=== PATIENT | female | born 1960 | race Caucasian/White ===

== ENCOUNTER → 2019-10-20 11:03 | Outpatient (BNVA) | payer MEDICAID, SELFPAY | PROVIDERS: Family Provider Family Medicine; PCP Family Medicine; Referring Provider Licensed Practical Nurse; Visit Provider Psychiatry & Neurology Neurology | DX: M54.2 Cervicalgia (principal); M79.602 Pain in left arm; M79.601 Pain in right arm | CPT/HCPCS: 95886; 95910 ==

== ENCOUNTER 2020-12-29 13:18 | Inpatient (IN) | payer MEDICAID, SELFPAY ==
[2020-12-29] VITALS (15 sets, daily range): BP systolic 73–103; BP diastolic 50–65; PULSE 74–100; RESP 12–19; TEMP 36.7; O2SAT 93–97; BMI 29.9
--- NOTE | 2020-12-29 14:42 | ECG_ITS ---
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 Measurements Intervals Steen Rate: 88 P: 59 IA: 135 QRS: 58 QRSD: 92 T: 96 QT: 353 QTc: 429 Interpretive Statements SINUS RHYTHM NONSPECIFIC ST & T-WAVE ABNORMALITY No previous ECG available for comparison Electronically Signed On 12-30-2020 7:18:14 CDT by Sarita Edwards M.D. [id number]
--- NOTE | 2020-12-29 14:42 | XR_ITS ---
WS: [id number] Exam: XR chest 1V portable [id number] Date/Time of Exam: 12/29/2020 2:48 PM Reason For Exam: cp No previous exams. The lungs are hyperinflated. No infiltrates or pleural effusions. Unremarkable cardiomediastinal stru ctures and bony elements. XR/XR chest 1V portable [id number] IMPRESSION: 1. No acute cardiopulmonary finding. 2. Pulmonary hyperinflation.
[2020-12-29 15:21] LABS: Basophils % 0.2 %; Eosinophils % 0.2 %; Hematocrit 42.3 % (37.0-47.0); Hemoglobin 13.9 g/dL (11.5-15.3); Lymphocytes # 4.3 10^3/uL (0.8-4.8); Lymphocytes % 25.7 %; Mean Corpuscular HGB Conc 32.9 g/dL (30.0-36.0); Mean Corpuscular Hemoglobin 30.8 pg (28.0-34.0); Mean Corpuscular Volume 93.8 fL (81-99); Mean Platelet Volume 10.5 fL (7.4-10.4); Monocytes # 1.3 10^3/uL (0.2-0.9); Monocytes % 7.7 %; Neutrophils # 10.87 10^3/uL (1.8-7.7); Neutrophils % 65.1 %; Nucleated Red Blood Cells % 0 %; Platelet Count 299 10^3/cmm (130-400); Red Blood Count 4.51 10^6/uL (4.1-5.3); White Blood Count 16.7 10^3/uL (4.0-10.0)
--- NOTE | 2020-12-29 15:42 | PC.PHAR ---
pt states she takes care of her own medications-pt brought in med list from [facility] dated 12/25/20 med list had gabapentin 300mg tid -pt states she is not taking that medication [facility] last filled february 2020-list also has clartin 10mg daily and golytel powder pt states she is not taking either of those medications-pt states she saw the yesterday and the dr galeanod prednisone 20mg take 2 tabs daily ext med history shows filled on 12/26/20 5d/s-pt states she has 2 or 3 caps left of the doxycycline hyclate 100mg bid filled on 12/26/20 7d/s
[2020-12-29 15:47] LABS: Troponin(5th) Baseline 37 ng/L (0-10)
[2020-12-29 15:51] LABS: Alanine Aminotransferase 38 U/L (0-33); Alkaline Phosphatase 60 IU/L (35-105); Anion Gap 16.6 (5-19); Aspartate Amino Transferase 12 U/L (0-32); Blood Urea Nitrogen 32 mg/dL (8-23); Calcium 9.2 mg/dL (8.5-10.5); Carbon Dioxide 26 mmol/L (22-29); Chloride 97 mmol/L (98-107); Glomerular Filtration Rate 38.4 mL/min (90-130); Glucose 114 mg/dL (65-115); NT Pro B Type Natriuretic Pept 136 pg/mL (0-125); Osmolality Calculated 290 mOsm/kg (285-295); Potassium 3.6 mmol/L (3.5-5.1); Sodium 136 mmol/L (136-145); Total Bilirubin 0.5 mg/dL (0.15-1.2)
--- NOTE | 2020-12-29 16:27 | W.ED.SOB ---
HPI - SOB/Dyspnea General: Chief Complaint: Shortness of Breath/Dyspnea Stated Complaint: SOB, DIZZY, HARD TO WALK Time Seen by Provider: 12/29/20 14:25 History of Present Illness: HPI Narrative: This is a 60-year-old female who presents with shortness of breath for over a week and also intermittent chest pain for a couple of weeks. Patient has a chronic cough she does have some COPD quit smoking 3 weeks ago she was seen and admitted at [facility] where they gave her steroids and antibiotics and sent her home and on Saturday when she arrived back home she had shortness of breath upon arrival to her house and chest discomfort. She has exertional chest pain that is a pressure or tightness that her arms at times feel kind of tingly and funny. She has had intermittent chest pain for couple of weeks she denies any orthopnea she does have some difficulty sleeping as she feels her heart is racing. She has chest pain currently that is a 2 out of 10. She denies any fevers. She said she had a Covid test at [facility] and also does have a Isaiah & Isaiah vaccination on the . She is a smoker she says she quit 3 weeks ago when all of this started she has hypertension diabetes hyperlipidemia family history of mother with a pacemaker and no known coronary artery disease in the family. Patient has never had chest pain work-up and denies ever having a stress test. She takes a blood pressure pill of lisinopril/HCTZ that she took earlier today. She uses her inhaler as needed. She denies wheezing. says patient just has not gotten any better since her admission she is had intermittent chest pain she continues to be short of breath and that it is not like her to complain and for her to want to come to the hospital that she must feel bad patient spoke to her PCP who instructed her to come to [facility] as opposed to [facility] Review of Systems General: Reports: 10 or more systems reviewed and unremarkable except in HPI and below Narrative: General: +++ fatigue, fever or chills HEENT: denies ear pain, denies nasal congestion, denies vision changes, denies sore throat Neck: denies masses or pain Resp: chronic cough non productive, dyspnea worse with exertion, palpitations when tries to sleep Cardio: chest pressure 2/10 denies edema GI: denies abdominal pain, denies N/V/D, denies black/tarry or bloody stools : denies hematuria, denies dysuria Neuro: denies headache, denies dizziness, denies motor or sensory changes Musculoskeletal: denies pain, denies swelling Skin: denies rashes Psych: denies SI or HI, insomnia Endocrine: denies thyroid symptoms, denies lymphadenopathy all over ROS reviewed and patient denies Physical Exam Narrative: EXAM NARRATIVE: General: a/o/3, no distress Head: atraumatic HEENT: normal eyes, normal conjunctiva, normal hearing, normal external nose, normal mouth, mucous membranes moist Neck: FROM, trachea midline Chest: normal expansion, no gross deformities Resp: normal speech, no retractions, no accessory muscle use, CTA bilaterally Cardio: regular rate and rhythm and no murmur, no peripheral edema, normal peripheral pulses GI: soft, flat non tender, no guarding normal BS : deferred Musculoskeletal: FROM, no pain or gross deformities Neuro: a/o appropriate for age, no gross motor or sensory deficitys, CN II-XII grossly intact, normal coordination, normal speech Skin: no rashes Psych: cooperative, normal mood and effect Course Vital Signs: Vital signs: Vital Signs Temperature 98.0 F 12/29/20 14:15 Pulse Rate 80 12/29/20 17:38 Respiratory Rate 18 12/29/20 17:38 Blood Pressure 89/57 12/29/20 17:38 Pulse Oximetry 95 12/29/20 17:38 MDM - SOB/Dyspnea MDM Narrative: Medical decision making narrative: Patient has had several readings of soft blood pressure in the ER she did go ahead and take her morning lisinopril hydrochlorothiazide I do not have anything to compare it to did check it several times in the ER and I did give to 86/52 she is asymptomatic but then her next reading was up in the 90s we will go ahead start some fluids. The concern is that patient does have some chest discomfort here in the ER she states it is a 2 out of a 10 she was given aspirin I cannot give her nitro she is not diaphoretic and she is nontoxic-appearing I will give her 2 mg of morphine for her pain. There is no acute ST changes I would consider a CTA of her chest concern she is had a recent Isaiah [employer] Isaiah Covid vaccination and continues to be short of breath however her GFR is 38 and she is not tachycardic and does not appear to be in distress so I will hold on IV contrast at this time due to his renal function. She has multiple risk factors including smoking hypertension high cholesterol diabetes no previous cardiac work-up her troponin is 37 which we will need to get serial troponins to determine if this is elevating or possibly on its way down. I think it would be reasonable to start heparin on her as her creatinine is a little bit elevated and 1 a hold on any Lovenox patient possibly has a non-STEMI and/or unstable angina. Spoke to the hospitalist at 430 we will admit the patient to [facility] with heparin and heparin drip as long as her blood pressure improves a little bit with fluids. She does have some renal insufficiency. Differential Diagnosis: Shortness of Breath Differential Diagnosis: Likely acute exacerbation of chronic obstructive airways disease, congestive heart failure and pulmonary embolism Medical Records: Attestation: I reviewed the patient's medical records. Lab Data: Attestation: I reviewed the patient's lab results. Labs: Lab Results 12/29/20 12/29/20 12/29/20 Range/Units 15:10 15:10 15:10 WBC 16.7 H (4.0-10.0) 10^3/ uL RBC 4.51 (4.1-5.3) 10^6/u L Hgb 13.9 (11.5-15.3) g/dL Hct 42.3 (37.0-47.0) % MCV 93.8 (81-99) fL MCH 30.8 (28.0-34.0) pg MCHC 32.9 (30.0-36.0) g/dL RDW 13.0 (12.1-15.1) % Plt Count 299 (130-400) 10^3/c mm MPV 10.5 H (7.4-10.4) fL Neut % (Auto) 65.1 % Lymph % (Auto) 25.7 % [place] % (Auto) 7.7 % Eos % (Auto) 0.2 % Baso % (Auto) 0.2 % Neut # (Auto) 10.87 H (1.8-7.7) 10^3/u L Lymph # (Auto) 4.3 (0.8-4.8) 10^3/u L [place] # (Auto) 1.3 H (0.2-0.9) 10^3/u L Eos # (Auto) 0.0 (0.0-0.8) 10^3/u L Baso # (Auto) 0.0 (0.0-0.1) 10^3/u L Nucleated RBC % (a uto) 0 % Nucleated RBCs # 0.0 /100WBC Sodium 136 (136-145) mmol/L Potassium 3.6 (3.5-5.1) mmol/L Chloride 97 L (98-107) mmol/L Carbon Dioxide 26 (22-29) mmol/L Anion Gap 16.6 (5-19) BUN 32 H (8-23) mg/dL Creatinine 1.4 H (0.5-0.9) mg/dL GFR Calculation 38.4 L (90-130) mL/min Glucose 114 (65-115) mg/dL Calculated Osmolal ity 290 (285-295) mOsm/k g Calcium 9.2 (8.5-10.5) mg/dL Total Bilirubin 0.5 (0.15-1.2) mg/dL AST 12 (0-32) U/L ALT 38 H (0-33) U/L Alkaline Phosphata se 60 (35-105) IU/L Troponin T Baselin e 37 H (0-10) ng/L NT-Pro-B Natriuret Pep 136 H (0-125) pg/mL Total Protein 7.0 (6.6-8.7) g/dL Albumin 4.0 (3.5-5.2) g/dL Globulin 3.0 (1.3-4.6) g/dL Urine Color (Yellow) Urine Appearance (CLEAR) Urine pH (5-7) Ur Specific Gravit y (1.005-1.030) Urine Protein (Negative) Urine Glucose (UA) (Normal) Urine Ketones (Negative) Urine Blood (Negative) Urine Nitrate (Negative) Urine Bilirubin (Negative) Urine Urobilinogen (Negative) mg/dL Ur Leukocyte Maria De Jesus ase (Negative) Urine RBC (0-2) /hpf Urine WBC (0-5) /hpf Ur Squamous Epith Cells (0-5) /hpf Amorphous Sediment Urine Bacteria (NONE) /hpf 12/29/20 Range/Units 17:18 WBC (4.0-10.0) 10^3/ uL RBC (4.1-5.3) 10^6/u L Hgb (11.5-15.3) g/dL Hct (37.0-47.0) % MCV (81-99) fL MCH (28.0-34.0) pg MCHC (30.0-36.0) g/dL RDW (12.1-15.1) % Plt Count (130-400) 10^3/c mm MPV (7.4-10.4) fL Neut % (Auto) % Lymph % (Auto) % [place] % (Auto) % Eos % (Auto) % Baso % (Auto) % Neut # (Auto) (1.8-7.7) 10^3/u L Lymph # (Auto) (0.8-4.8) 10^3/u L [place] # (Auto) (0.2-0.9) 10^3/u L Eos # (Auto) (0.0-0.8) 10^3/u L Baso # (Auto) (0.0-0.1) 10^3/u L Nucleated RBC % (a uto) % Nucleated RBCs # /100WBC Sodium (136-145) mmol/L Potassium (3.5-5.1) mmol/L Chloride (98-107) mmol/L Carbon Dioxide (22-29) mmol/L Anion Gap (5-19) BUN (8-23) mg/dL Creatinine (0.5-0.9) mg/dL GFR Calculation (90-130) mL/min Glucose (65-115) mg/dL Calculated Osmolal ity (285-295) mOsm/k g Calcium (8.5-10.5) mg/dL Total Bilirubin (0.15-1.2) mg/dL AST (0-32) U/L ALT (0-33) U/L Alkaline Phosphata se (35-105) IU/L Troponin T Baselin e (0-10) ng/L NT-Pro-B Natriuret Pep (0-125) pg/mL Total Protein (6.6-8.7) g/dL Albumin (3.5-5.2) g/dL Globulin (1.3-4.6) g/dL Urine Color Yellow (Yellow) Urine Appearance Clear (CLEAR) Urine pH 5 (5-7) Ur Specific Gravit y 1.010 (1.005-1.030) Urine Protein Neg (Negative) Urine Glucose (UA) Norm (Normal) Urine Ketones Negative (Negative) Urine Blood Neg (Negative) Urine Nitrate Negative (Negative) Urine Bilirubin Neg (Negative) Urine Urobilinogen Norm (Negative) mg/dL Ur Leukocyte Maria De Jesus ase Negative (Negative) Urine RBC None (0-2) /hpf Urine WBC None (0-5) /hpf Ur Squamous Epith Cells None (0-5) /hpf Amorphous Sediment Not Reportable Urine Bacteria None (NONE) /hpf EKG Data^: EKG 1: Attestation: I personally reviewed and interpreted this EKG as follows: EKG Interpretation Date: 12/29/20 EKG interpretation time: 15:15 Prior EKG tracings: not available for review Computer Generated Interpretation: NSR, flat T waves, rate 88, no acute st changes or elevation Discharge Plan Discharge Patient Disposition: Placed in Observation Clinical Impression: Non-ST elevated myocardial infarction (non-STEMI), Renal insufficiency Hypotension Qualifiers: Hypotension type: unspecified hypotension type Qualified Code(s): I95.9 - Hypotension, unspecified Dyspnea Qualifiers: Dyspnea type: unspecified Qualified Code(s): R06.00 - Dyspnea, unspecified Coding Level of Care Code ED Explosive Specialist for Arlene Schwartz
[2020-12-29] MEDS: aspirin 81 mg Chew Tablet 324 MG PO (16:28)
[2020-12-29] MEDS: sodium chloride 0.9% 500 ML 999 ML IV (16:29)
[2020-12-29] MEDS: heparin 5,000 unit/mL INJ 1 mL 4000 UNIT IVP (17:32)
[2020-12-29] MEDS: heparin drip 25,000 UNIT/500 ML PREMIX 19.6 UNIT IV (17:35)
[2020-12-29 17:51] LABS: Bilirubin Urine Neg (Negative); Blood Urine Neg (Negative); Glucose Urine UA Norm (Normal); Ketones Urine Negative (Negative); Leukocyte Esterase Urine Negative (Negative); Nitrate Urine Negative (Negative); Protein Urine Neg (Negative); Urine Appearance Clear (CLEAR); Urine Color Yellow (Yellow); Urobilinogen Urine Norm (Negative); pH Urine 5 (5-7)
[2020-12-29 18:47] LABS: Troponin 5 2HR 31.95 ng/L (0-10)
[2020-12-29 18:50] LABS: Troponin 5 2HR Delta -5.05 ABS# (0-10)
--- NOTE | 2020-12-29 19:53 | PM.HP ---
Providers/Chief Complaint Chief Complaint: SOB, DIZZY, HARD TO WALK History of Present Illness Pleasant 60-year-old lady with history of COPD, not normally on oxygen, recently quit smoker, 2 weeks ago, HLD, HTN, previously daily EtOH intake, 6 pack a day, but has stopped a month ago, presented to ER with complaint of chest tightness, worsening, going on for about a week. Reports she had been admitted to [facility] for treatment of bronchitis, where she was tested for COVID-19. Reports she received Isaiah & Isaiah vaccination on 12/12. Reports that she was discharged with prednisone and antibiotic (appears doxycycline), however, stopped taking prednisone 2 days ago after contacting her primary care provider due to being unable to sleep, and he thought that she had gotten too much steroid. She reports that chest tightness/discomfort currently, mild, but persistent. She denies known history of coronary disease. Troponin in ER initially noted elevated 37. EKG with nonspecific T wave abnormalities. With risk factors of coronary disease, concern for possibility of unstable angina versus NSTEMI, she is started on medical treatment with aspirin, anticoagulation. She reports some intermittent cough, although seems like phlegm production has reduced after the treatment she had received at [facility]. She denies any hemoptysis. Has not had any unilateral or bilateral leg swelling. In ER noted to have soft blood pressure, initially as low as 83/58. Found to be dehydrated. Improved with small fluid bolus. At home states has been taking a combination blood pressure pill which appears to be lisinopril-HCTZ. Creatinine noted elevated at 1.4 without known chronic kidney disease. She reports shortness of breath gets worse with lying flat. Reports tightness gets worse with exertion. Review of Systems Const: Denies: fever(s), chills, body aches or malaise Eyes: Denies: change in vision or eye redness ENMT: Denies: throat pain, oral sores or ear or mastoid pain Card: Reports: chest pain; Denies: edema, pre-syncope or dyspnea on exertion Resp: Reports: dyspnea and non-productive cough; Denies: change in phlegm color or hemoptysis GI: Denies: abdominal pain, nausea, vomiting, diarrhea, constipation, hematochezia or melena : Denies: flank pain, urinary frequency or hematuria Musc: Denies: back pain, joint swelling or joint redness Skin/Breast: Denies: rash, sores or new lesions Neuro: Denies: headache(s), numbness in extremities, weakness in extremities, dizziness, confusion or seizure-like activity Endo: Denies: polyuria or polydipsia Burke/Lymph: Denies: easy bleeding or purpura All/Imm: Denies: urticaria, throat swelling or tongue swelling Medications/Allergies Home Medications Medication Instructions Recorded Confirmed Last Taken Type acetaminophen [Tylenol Extra 500 mg PO PRN 12/29/20 12/29/20 12/29/20 08:00 History Strength] albuterol sulfate [ProAir HFA] 2 puff INHALATION Q4H PRN 12/29/20 12/29/20 Unknown History baclofen 20 mg PO TID PRN 12/29/20 12/29/20 Unknown History denosumab [Prolia] 60 mg SUBCUT .EVERY 6 MONTHS 12/29/20 12/29/20 Unknown History doxycycline hyclate 100 mg PO BID 12/29/20 12/29/20 12/28/20 History fluticasone propionate 1 - 2 spray INTRANASAL BID PRN 12/29/20 12/29/20 Unknown History ipratropium-albuterol 3 ml INHALATION QID 12/29/20 12/29/20 12/29/20 08:00 History lisinopril-hydrochlorothiazide 1 tab PO QAM 12/29/20 12/29/20 12/29/20 History magnesium oxide 400 mg PO DAILY 12/29/20 12/29/20 Unknown History metformin 500 mg PO QPM 12/29/20 12/29/20 12/28/20 History pantoprazole 40 mg PO BID 12/29/20 12/29/20 12/29/20 08:00 History prednisone 40 mg PO DAILY 12/29/20 12/29/20 12/28/20 History simvastatin 40 mg PO QPM 12/29/20 12/29/20 12/28/20 History tiotropium bromide [Spiriva with 1 cap INHALATION DAILY 12/29/20 12/29/20 12/28/20 History HandiHaler] Allergies Allergy/AdvReac Type Severity Reaction Status Date / Time Penicillins Allergy Intermediate Hives Verified 12/29/20 15:34 PFSH Acute PFSH: Medical History COPD (chronic obstructive pulmonary disease) HLD (hyperlipidemia) HTN (hypertension) Family History (Updated 12/29/20 @ 20:07 by Ronaldo Martinez MD) Mother COPD (chronic obstructive pulmonary disease) Pacemaker Social History Smoking and tobacco status: former smoker Quit status (tobacco): has quit using tobacco Year quit tobacco: 2020 Former quit date comment: Reports has quit 2 weeks ago Alcohol intake: former Year of sobriety/quit date alcohol: 2020 Former alcohol use details: Quit 1 month ago, previously 6 pack a day of beer Substance/Drug Use: never Lives independently: Yes Household members: spouse Marital status: Current occupational status: disabled Vitals/I&O/Wt Last Vital Signs Temp 98.0 F 12/29/20 14:15 Pulse 76 12/29/20 19:05 Resp 19 H 12/29/20 19:05 BP 100/54 12/29/20 19:05 Pulse Ox 93 12/29/20 19:05 Weight last 48 hrs Weight 81.647 kg Physical Exam Const: COMMON NORMALS: no acute distress and patient oriented x3 NUTRITIONAL APPEARANCE: overweight HENMT: COMMON NORMALS: oropharynx normal Neck/C-Spine: COMMON NORMALS: no JVD Resp: COMMON NORMALS: normal respiratory effort AUSCULTATION: wheezes (mild) and diminished lung sounds Cardio: COMMON NORMALS: no JVD, regular rhythm, S1 normal heart sound present, S2 normal heart sound present and No murmurs present (Cardio) RHYTHM: regular rhythm HEART SOUNDS: S1 normal heart sound present and S2 normal heart sound present GI: COMMON NORMALS: Normal to inspection, nondistended, normoactive bowel sounds present, Soft to palpation and non-tender PALPATION: Yes Soft to palpation Extremity: COMMON NORMALS: no joint enlargement and no pedal edema Neuro: COMMON NORMALS: patient oriented x3 and moves all extremities Skin: COMMON NORMALS: no rashes or lesions noted GENERAL SKIN EXAM: no rashes or lesions noted Data : 12/29/20 15:10 12/29/20 15:10 A&P Assessment and plan (1) Non-ST elevated myocardial infarction (non-STEMI): Started on aspirin, anticoagulation with heparin, contribution to beta-wang. Statin. Monitor on telemetry. Obtain TTE. Currently some chest discomfort, no pain. Reports funny feeling . Nonspecific EKG changes. Has risk factors for CAD. Troponin 37-31. Complete troponin EKG series. Obtain TTE. Since he is not having active chest pain, chest tightness/discomfort a weeks duration atypical, slightly suspicious. No definitive changes on EKG, will monitor with cardiac monitoring currently. If no recurrence of chest pain, tentatively plan for assessment by stress testing tomorrow. Status: Acute (2) Hypotension: Appears to be secondary to dehydration, possibly secondary to antihypertensive medication in setting of MADONNA, also in combination of diuretic. Responded to small bolus. Hold antihypertensive, diuretic. Status: Acute Qualifiers: Hypotension type: unspecified hypotension type Qualified Code(s): I95.9 - Hypotension, unspecified (3) Renal insufficiency: Acute kidney injury, creatinine 1.4. Unknown whether chronic kidney disease but she denies. Will reassess renal function. Received fluid challenge in ER. Hold antihypertensives, diuretic. Status: Acute (4) Dyspnea: COPD with recent exacerbation for which she is recovering. Discussed with her concern regarding possible NSTEMI recently. She reports some orthopnea. Will assess TTE. She reports occasionally her heart rates will go into what would seem like 190 bpm to her without apparent reason. Denies history of atrial fibrillation or other arrhythmia. Will monitor on telemetry. Discussed with her consideration of event monitoring after discharge. Status: Acute Qualifiers: Dyspnea type: unspecified Qualified Code(s): R06.00 - Dyspnea, unspecified (5) COPD (chronic obstructive pulmonary disease): Recent COPD exacerbation. Continue her antibiotic. Continue prednisone. Breathing treatments. Status: Acute (6) Quit smoking: Quit smoking 2 weeks ago. Continue to encourage abstinence. Status: Acute (7) Has recently quit alcohol use: Quit drinking alcohol 1 month ago. Continue to encourage abstinence. Monitor for withdrawal. Status: Acute Attestations Medical Necessity Statement*: Place in observation for additional assessment of chest tightness, dyspnea, with risk factors of CAD, possible recent NSTEMI, hypotension, acute kidney injury. Coding Level of Care Code Acute Automotive T[employer] Tester for [facility] Diagnoses Non-ST elevated myocardial infarction (non-STEMI) I21.4 Hypotension I95.9 Hypotension type: unspecified hypotension type Renal insufficiency N28.9 Dyspnea R06.00 Dyspnea type: unspecified COPD (chronic obstructive pulmonary disease) J44.9 Quit smoking Z87.891 Has recently quit alcohol use Z87.895
[2020-12-29 20:42] LABS: D Dimer <= 0.27 ug/mIFEU (0-0.59)
[2020-12-29 21:32] LABS: Troponin 5 6HR 31.71 ng/L (0-10)
[2020-12-29 21:33] LABS: Troponin 5 6HR Delta -5.29 ng/L (0-12)
--- NOTE | 2020-12-29 22:26 | PC.NURSE ---
Patient requesting to have her dose of protonix tonight. She takes it twice daily. Informed Dr Bell and received telephone order to change start time of Protonix 40mg PO to now.
[2020-12-29] MEDS: lactated ringers 500 ML 999 ML IV (22:58)
[2020-12-29] MEDS: pantoprazole DR 40 mg Tablet PO (22:58)
[2020-12-29 23:40] LABS: Partial Thromboplastin Time 34.8 SECONDS (23.9-36.7)
[2020-12-30] VITALS (39 sets, daily range): BP systolic 83–102; BP diastolic 46–69; PULSE 69–88; RESP 10–19; TEMP 36.4–37.2; O2SAT 89–96
[2020-12-30] MEDS: heparin 5,000 unit/mL INJ 1 mL IV ×2 (00:33→14:04)
--- NOTE | 2020-12-30 00:47 | PC.NURSE ---
Late Entry Received patient from ED via wheelchair. Patient is A & O x4. Patient has a nicotine patch on her left arm that she applied at home. Patient has no complaints of pain or other needs at this time. Nurse will continue to monitor.
[2020-12-30] MEDS: trazodone 50 mg Tablet 25 MG PO (01:05)
[2020-12-30] MEDS: sodium chloride 0.9% 500 ML IV (04:53)
--- NOTE | 2020-12-30 06:11 | PC.NURSE ---
Contacted Dr Bell regarding patient c/o of being nauseous and IV bolus did not increase BP. Current BP 84/46. Awaiting response for anti-nauseous medication.
[2020-12-30] MEDS: ondansetron 2 mg/ML SDV 2 mL 4 MG IVP (06:36)
[2020-12-30 07:05] LABS: Basophils % 0.2 %; Eosinophils # 0.1 10^3/uL (0.0-0.8); Eosinophils % 0.5 %; Lymphocytes # 3.8 10^3/uL (0.8-4.8); Lymphocytes % 30.7 %; Mean Corpuscular HGB Conc 31.7 g/dL (30.0-36.0); Mean Corpuscular Hemoglobin 30.7 pg (28.0-34.0); Mean Corpuscular Volume 96.7 fL (81-99); Mean Platelet Volume 11.4 fL (7.4-10.4); Monocytes % 7.7 %; Neutrophils % 59.4 %; Nucleated Red Blood Cells % 0 %; Platelet Count 257 10^3/cmm (130-400); Red Blood Count 4.24 10^6/uL (4.1-5.3); Red Cell Distribution Width 13.2 % (12.1-15.1); White Blood Count 12.5 10^3/uL (4.0-10.0)
[2020-12-30 07:22] LABS: Alanine Aminotransferase 34 U/L (0-33); Albumin Level 3.8 g/dL (3.5-5.2); Alkaline Phosphatase 57 IU/L (35-105); Aspartate Amino Transferase 17 U/L (0-32); Blood Urea Nitrogen 33 mg/dL (8-23); Calcium 8.9 mg/dL (8.5-10.5); Carbon Dioxide 25 mmol/L (22-29); Chloride 101 mmol/L (98-107); Globulin 2.9 g/dL (1.3-4.6); Glomerular Filtration Rate 50.7 mL/min (90-130); Glucose 101 mg/dL (65-115); Osmolality Calculated 293 mOsm/kg (285-295); Sodium 138 mmol/L (136-145); Total Bilirubin 0.4 mg/dL (0.15-1.2); Total Protein 6.7 g/dL (6.6-8.7)
[2020-12-30] MEDS: pantoprazole DR 40 mg Tablet PO ×2 (08:58→17:07)
[2020-12-30] MEDS: doxycycline 100 mg Tablet PO ×2 (08:58→17:07)
[2020-12-30] MEDS: predniSONE 20 mg Tablet 40 MG PO (08:58)
[2020-12-30] MEDS: ipratropium-albuterol 3 mL Neb INHALATION ×4 (09:22→21:02)
[2020-12-30 13:12] LABS: Partial Thromboplastin Time 49.6 SECONDS (23.9-36.7)
[2020-12-30] MEDS: heparin drip 25,000 UNIT/500 ML PREMIX 24.6 UNIT IV (17:06)
[2020-12-30] MEDS: atorvastatin 40 mg Tablet 20 MG PO (17:07)
[2020-12-30] MEDS: polyethylene glycol 3350 Pkt 17 gm PO (17:49)
[2020-12-30] MEDS: sodium chloride 0.9% 1,000 ML 100 ML IV (18:05)
--- NOTE | 2020-12-30 19:00 | PC.NURSE ---
Bedside report received from Camille ESTES. Pt resting in bed. A & O x4. Patient has complaints of being to hot. Fan turned on high and moved closer to patient. Patient voices no complaints of pain or other needs at this time. Nurse will continue to monitor.
--- NOTE | 2020-12-30 20:14 | P.CONIM_ITS ---
Providers/Reason For Consult Consulting Physican/Specialty*: Cardiology Reason for Consult*: Chest pain, abnormal EKG Attending Physician: Ronaldo Martinez History of Present Illness History of Present Illness Eloisa Dutton is a 60 year old female past medical history significant for tobacco abuse quit couple of weeks ago, history of alcoholism quit many months ago according to her she is sober now was admitted to [facility] with atypical chest pain fatigue dizziness COPD exacerbation and dehydration. She was given antibiotic and steroid letter was discharged. After discharge she went home but did not feel good she felt lightheaded with chest pressure, her chest pressure complaint is going on for past few weeks. She admits to more than usual shortness of breath and fatigue. She can barely walk few 100 yards as she has to sit down to get over it. She also complained of exertional chest pain. She has bilateral lower extremity cramps and pain upon walking as well however both lower extremity has good pulses bilaterally. She has strong family history of coronary disease. She recently has Isaiah & Isaiah vaccine. She denies PND orthopnea presyncope syncope. Twelve-lead EKG showed no significant ST-T ST changes. Meds/Allergies Home Medications and Allergies Home Medications Medication Instructions Recorded Confirmed Last Taken Type acetaminophen [Tylenol Extra 500 mg PO PRN 12/29/20 12/29/20 12/29/20 08:00 History Strength] albuterol sulfate [ProAir HFA] 2 puff INHALATION Q4H PRN 12/29/20 12/29/20 Unknown History baclofen 20 mg PO TID PRN 12/29/20 12/29/20 Unknown History denosumab [Prolia] 60 mg SUBCUT .EVERY 6 MONTHS 12/29/20 12/29/20 Unknown History doxycycline hyclate 100 mg PO BID 12/29/20 12/29/20 12/28/20 History fluticasone propionate 1 - 2 spray INTRANASAL BID PRN 12/29/20 12/29/20 Unknown History ipratropium-albuterol 3 ml INHALATION QID 12/29/20 12/29/20 12/29/20 08:00 History lisinopril-hydrochlorothiazide 1 tab PO QAM 12/29/20 12/29/20 12/29/20 History magnesium oxide 400 mg PO DAILY 12/29/20 12/29/20 Unknown History metformin 500 mg PO QPM 12/29/20 12/29/20 12/28/20 History pantoprazole 40 mg PO BID 12/29/20 12/29/20 12/29/20 08:00 History prednisone 40 mg PO DAILY 12/29/20 12/29/20 12/28/20 History simvastatin 40 mg PO QPM 12/29/20 12/29/20 12/28/20 History tiotropium bromide [Spiriva with 1 cap INHALATION DAILY 12/29/20 12/29/20 12/28/20 History HandiHaler] Allergies Allergy/AdvReac Type Severity Reaction Status Date / Time Penicillins Allergy Intermediate Hives Verified 12/29/20 15:34 Current Medications Current Medications Generic Name Dose Route Start Last Admin Trade Name Freq PRN Reason Stop Dose Admin Albuterol/Ipratropium 3 ml 12/29/20 21:00 12/30/20 16:29 Ipratropium-Albuterol 3 Ml Neb INHALATION Not Given QID VEGA Atorvastatin Calcium 20 mg 12/30/20 18:00 12/30/20 17:07 Atorvastatin 40 Mg Tablet PO 20 mg QPM VEGA Administration Doxycycline Monohydrate 100 mg 12/30/20 09:00 12/30/20 17:07 Doxycycline 100 Mg Tablet PO 100 mg BID VEGA Administration Heparin Sodium (Beef Lung) 0 unit 12/29/20 23:56 12/30/20 14:04 Heparin 5,000 Unit/Ml Inj 1 Ml IV 1,600 unit PRN PRN Administration Heparin weight-base protocol Protocol Heparin Sodium/Sodium Chloride 25,000 unit in 500 mls @ 19.595 mls/hr 12/29/20 16:45 12/30/20 17:06 Heparin Drip IV 15.06 unit/kg/hr .Q24H VEGA 24.6 mls/hr Administration 12 UNIT/KG/HR Sodium Chloride 1,000 mls @ 100 mls/hr 12/30/20 18:00 12/30/20 18:05 Sodium Chloride 0.9% IV 100 mls/hr .Q10H VEGA Administration Ondansetron HCl 4 mg 12/30/20 06:29 12/30/20 06:36 Ondansetron 2 Mg/Ml Sdv 2 Ml IVP 4 mg Q6H PRN Administration NAUSEA AND VOMITING Pantoprazole Sodium 40 mg 12/29/20 22:26 12/30/20 17:[address] 40 Mg Tablet PO 40 mg BID VEGA Administration Polyethylene Glycol 17 gm 12/30/20 18:00 12/30/20 17:49 Polyethylene Glycol 3350 Pkt 17 Gm PO 17 gm BID VEGA Administration Prednisone 40 mg 12/30/20 09:00 12/30/20 08:58 Prednisone 20 Mg Tablet PO 40 mg DAILY VEGA Administration PFSH Acute PFSH: Medical History COPD (chronic obstructive pulmonary disease) HLD (hyperlipidemia) HTN (hypertension) Family History (Updated 12/29/20 @ 20:07 by Ronaldo Martinez MD) Mother COPD (chronic obstructive pulmonary disease) Pacemaker Social History Smoking and tobacco status: former smoker Quit status (tobacco): has quit using tobacco Year quit tobacco: 2020 Former quit date comment: Reports has quit 2 weeks ago Alcohol intake: former Year of sobriety/quit date alcohol: 2020 Former alcohol use details: Quit 1 month ago, previously 6 pack a day of beer Substance/Drug Use: never Lives independently: Yes Household members: spouse Marital status: Current occupational status: disabled Vitals/I&O/Wt Last Vital Signs Temp 98.3 F 12/30/20 19:31 Pulse 81 12/30/20 19:31 Resp 16 12/30/20 19:31 BP 95/55 12/30/20 19:31 Pulse Ox 94 12/30/20 19:31 12/30/20 12/30/20 12/30/20 06:59 14:59 22:59 Intake Total 637.853 / 1387.853 543.97 / 543.97 538.177 / 1082.147 Balance 637.853 / 1387.853 543.97 / 543.97 538.177 / 1082.147 Weight last 48 hrs Weight 189 lb 6.4 oz Weight 180 lb Physical Exam Narrative: EXAM NARRATIVE: GENERAL: Patient is alert, awake and oriented x3. NECK: No jugular vein distension. HEENT: No cyanosis. No icterus. No pallor. HEART: Regular S1 and S2. No murmur, rub or gallop. LUNGS: Clear to auscultate bilaterally. ABDOMEN: Soft, nontender and nondistended. Positive bowel sounds. No guarding, rebound or tenderness. CENTRAL NERVOUS SYSTEM: Grossly nonfocal. EXTREMITIES: Lower extremities without edema bilaterally. Pulses palpable in the lower extremities, both dorsalis pedis and posterior tibial. A&P Assessment and plan (1) Chest pain: Worsening of chest pain with increasing frequency and duration along with shortness of breath in a patient with history of tobacco abuse is suspicious for angina. Patient was offered stress test which she declined and says she will never do it. Since she is high risk for acute current syndrome and she has elevated cardiac markers we will therefore proceed with left heart cath for risk stratification. Patient will be loaded with Plavix. She is on statin and LIANNE inhibitor. We will start her on beta-wang. I have personally explained all risk benefit and alternative for the procedure to the patient and also over the phone to her . Patient understand the risk for stroke arrhythmia urgent emergent surgery bypass. She would like to proceed with it. Status: Acute Qualifiers: Chest pain type: precordial pain Qualified Code(s): R07.2 - Precordial pain (2) Elevated heart rate with elevated blood pressure and diagnosis of hypertension: Suspicious for underlying coronary artery disease. Continue anticoagulation aspirin statin and beta-wang. 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
--- NOTE | 2020-12-30 20:40 | USCV_ITS ---
Eloisa Dutton Age: 60 Gender: F : 1960 Exam Date: 12/30/2020 05:28 Ordering Phys: Ronaldo Martinez MD Technologist: Faye Guthrie Exam Location: [facility] Indication: chest tightness, elevated troponin, risk CAD BP: 94 / 54 HR: 76 Rhythm: Sinus Technical Quality: Adequate MEASUREMENTS (Male / Female) Normal Values 2D ECHO LV Diastolic Diameter PLAX 3.8 cm 4.2 - 5.9 / 3.9 - 5.3 cm LV Systolic Diameter PLAX 3.1 cm LV Chamber Size 2.9 cm IVS Diastolic Thickness 1.0 cm 0.6 - 1.0 / 0.6 - 0.9 cm IVS Systolic Thickness 1.4 cm LVPW Diastolic Thickness 1.4 cm 0.6 - 1.0 / 0.6 - 0.9 cm LVPW Systolic Thickness 1.6 cm RV Chamber Size 2.5 cm LVOT Diameter 2.0 cm LV Ejection Fraction 2D Teich 36.9 % LV Ejection Fraction MOD 2C 59.1 % LV Ejection Fraction 2C AL 59.4 % LA Diameter 2.9 cm LA Width 2.6 cm LA Height 2.8 cm RA Width 3.1 cm RA Height 3.1 cm Aorta at Sinotubular Diameter 2.9 cm M-MODE LV Diastolic Diameter MM 5.4 cm 4.2 - 5.9 / 3.9 - 5.3 cm LV Systolic Diameter MM 3.3 cm LV Ejection Fraction MM Teich 69.7 % IVS Diastolic Thickness MM 1.1 cm 0.6 - 1.0 / 0.6 - 0.9 cm IVS Systolic Thickness MM 1.8 cm LVPW Diastolic Thickness MM 1.1 cm 0.6 - 1.0 / 0.6 - 0.9 cm LVPW Systolic Thickness MM 1.5 cm Aortic Annulus Diameter 3.5 cm LA Ao Ratio MM 1.0 MV E Point Septal Separation 0.3 cm DOPPLER AV Peak Velocity 152.0 cm/s LVOT Peak Velocity 129.0 cm/s AV Area Cont Eq vti 3.2 cm squared AV Area Cont Eq pk 2.7 cm squared MV Area PHT 3.3 cm squared Mitral E to A Ratio 0.7 MV E' Velocity 31.5 cm/s Mitral E to MV E' Ratio 9.1 Mitral E to LV E' Lateral Ratio 8.8 Mitral E to LV E' Septal Ratio 9.4 TR Peak Velocity 151.7 cm/s TR Peak Gradient 9.2 mmHg TR Mean Velocity 103.4 cm/s TR Mean Gradient 5.1 mmHg TR Velocity Time Integral 34.4 cm TV Peak E Velocity 57.0 cm/s Right Atrial Pressure 3.0 mmHg Pulmonary Artery Systolic Pressu 12.2 mmHg PV Peak Velocity 79.0 cm/s RV Acceleration Time 0.1 s RV Ejection Time 0.3 s RV AcT/ET 0.4 FINDINGS Left Ventricle Normal left ventricular cavity size. Normal left ventricular systolic function. No regional wall motion abnormalities. Left ventricular ejection fraction is estimated at 65 %. Grade I/IV diastolic dysfunction (abnormal relaxation filling pattern), normal to mildly elevated filling pressures. Right Ventricle The right ventricle is normal in size and function. Right Atrium The right atrium is normal in size. Left Atrium The left atrium is normal in size. Mitral Valve Structurally normal mitral valve without significant stenosis or prolapse. There is no mitral regurgitation. Aortic Valve Structurally normal aortic valve without significant sclerosis or stenosis. There is no aortic regurgitation. Tricuspid Valve Structurally normal tricuspid valve without significant stenosis or regurgitation. Pulmonary artery systolic pressure is normal. Pulmonic Valve Structurally normal pulmonic valve without significant stenosis. There is no pulmonic regurgitation. Pericardium Normal pericardium without effusion. Aorta Normal ascending aorta dimension. CONCLUSIONS 1-Normal left ventricular cavity size. Normal left ventricular systolic function. No regional wall motion abnormalities. Left ventricular ejection fraction is estimated at 65 %. Grade I/IV diastolic dysfunction (abnormal relaxation filling pattern), normal to mildly elevated filling pressures. 2-There is no pericardial effusion. 3-Pulmonary artery systolic pressure is within normal limits. 4-No significant valve abnormalities. 5-Right atrial pressure is around 5 mm of mercury. 6-There are no prior echocardiogram studies to compare. Heidi Multani MD (Electronically Signed) Final Date: 31 Dec 2020 23:16 S
[2020-12-30 20:53] LABS: Partial Thromboplastin Time 65.5 SECONDS (23.9-36.7)
--- NOTE | 2020-12-30 21:03 | P.PN_ITS ---
Subjective Subjective: Interval history: Denies any significant shortness of breath, cough, still having funny feeling in her chest especially with exertion, gets easily tired. Vitals/I&O/Wt Last Vital Signs Temp 98.3 F 12/30/20 19:31 Pulse 81 12/30/20 19:31 Resp 16 12/30/20 19:31 BP 95/55 12/30/20 19:31 Pulse Ox 94 12/30/20 19:31 12/30/20 12/30/20 12/30/20 06:59 14:59 22:59 Intake Total 637.853 / 1387.853 543.97 / 543.97 538.177 / 1082.147 Balance 637.853 / 1387.853 543.97 / 543.97 538.177 / 1082.147 Weight last 48 hrs Weight 85.91 kg Weight 81.647 kg Physical Exam Const: COMMON NORMALS: no acute distress and patient oriented x3 NUTRITIONAL APPEARANCE: overweight HENMT: COMMON NORMALS: oropharynx normal Neck/C-Spine: COMMON NORMALS: no JVD Resp: COMMON NORMALS: normal respiratory effort and clear to auscultation bilaterally AUSCULTATION: clear to auscultation bilaterally Cardio: COMMON NORMALS: no JVD, regular rhythm, S1 normal heart sound present, S2 normal heart sound present and No murmurs present (Cardio) RHYTHM: regular rhythm HEART SOUNDS: S1 normal heart sound present and S2 normal heart sound present GI: COMMON NORMALS: Normal to inspection, nondistended, normoactive bowel sounds present, Soft to palpation and non-tender PALPATION: Yes Soft to palpation Extremity: COMMON NORMALS: no joint enlargement and no pedal edema Neuro: COMMON NORMALS: patient oriented x3 and moves all extremities Skin: COMMON NORMALS: no rashes or lesions noted GENERAL SKIN EXAM: no rashes or lesions noted Data : 12/30/20 06:28 12/30/20 06:28 A&P Assessment and plan (1) Non-ST elevated myocardial infarction (non-STEMI): Still having chest discomfort. With multiple risk factors for coronary disease, obtain cardiology consultation. Appreciate recommendations. As per their discussion with the patient after consideration of assessment and treatment options she had decided to proceed with coronary angiography tomorrow. Continue aspirin, anticoagulation with heparin, contribution to beta-wang. Statin. Monitor on telemetry. Follow TTE. Status: Acute (2) Hypotension: Improved, although blood pressure still soft. Follow-up TTE. Additional assessment for coronary disease with concern for cardiac ischemia as above. Continue to hold antihypertensives, diuretic. Status: Acute Qualifiers: Hypotension type: unspecified hypotension type Qualified Code(s): I95.9 - Hypotension, unspecified (3) Renal insufficiency: Improving. Creatinine down to 1.1. Unknown whether chronic kidney disease but she denies. Reassess renal function. Hold antihypertensives, diuretic. Status: Acute (4) Dyspnea: Minute if any wheezing on exam. She denies significant cough. Denies sputum production. NSTEMI/unstable angina as above. COPD with recent exacerbation for which she is recovering. She reports occasionally her heart rates will go into what would seem like 190 bpm to her without apparent reason. Denies history of atrial fibrillation or other arrhythmia. Monitor on telemetry. Discussed with her consideration of event monitoring afte r discharge. Status: Acute Qualifiers: Dyspnea type: unspecified Qualified Code(s): R06.00 - Dyspnea, unspecified (5) COPD (chronic obstructive pulmonary disease): Decrease prednisone dose. Recent COPD exacerbation. Continue her antibiotic. Continue prednisone. Breathing treatments. Status: Acute (6) Quit smoking: Quit smoking 2 weeks ago. Continue to encourage abstinence. Status: Acute (7) Has recently quit alcohol use: Quit drinking alcohol 1 month ago. Continue to encourage abstinence. Monitor for withdrawal. Status: Acute Attestations Medical Necessity Statement*: Admission of over 2 midnights is needed for assessment of management of NSTEMI Coding Level of Care Code Acute Rate Examiner for [facility] Diagnoses Non-ST elevated myocardial infarction (non-STEMI) I21.4 Hypotension I95.9 Hypotension type: unspecified hypotension type Renal insufficiency N28.9 Dyspnea R06.00 Dyspnea type: unspecified COPD (chronic obstructive pulmonary disease) J44.9 Quit smoking Z87.891 Has recently quit alcohol use Z87.898
[2020-12-31] VITALS (68 sets, daily range): BP systolic 81–135; BP diastolic 42–77; PULSE 65–97; RESP 10–21; TEMP 36.6–36.8; O2SAT 91–98
[2020-12-31 02:46] LABS: Basophils % 0.1 %; Eosinophils # 0.1 10^3/uL (0.0-0.8); Eosinophils % 0.3 %; Hemoglobin 12.7 g/dL (11.5-15.3); Lymphocytes # 2.7 10^3/uL (0.8-4.8); Mean Corpuscular HGB Conc 32.6 g/dL (30.0-36.0); Mean Corpuscular Volume 95.1 fL (81-99); Mean Platelet Volume 10.9 fL (7.4-10.4); Monocytes # 1.1 10^3/uL (0.2-0.9); Monocytes % 7.4 %; Neutrophils # 10.75 10^3/uL (1.8-7.7); Neutrophils % 73.1 %; Nucleated Red Blood Cells % 0 %; Platelet Count 263 10^3/cmm (130-400); Red Cell Distribution Width 12.9 % (12.1-15.1); White Blood Count 14.7 10^3/uL (4.0-10.0)
[2020-12-31 03:00] LABS: Albumin Level 3.9 g/dL (3.5-5.2); Alkaline Phosphatase 57 IU/L (35-105); Anion Gap 13.6 (5-19); Aspartate Amino Transferase 11 U/L (0-32); Blood Urea Nitrogen 30 mg/dL (8-23); Calcium 8.8 mg/dL (8.5-10.5); Carbon Dioxide 26 mmol/L (22-29); Chloride 102 mmol/L (98-107); Glomerular Filtration Rate 45.8 mL/min (90-130); Glucose 138 mg/dL (65-115); Osmolality Calculated 292 mOsm/kg (285-295); Potassium 4.6 mmol/L (3.5-5.1); Sodium 137 mmol/L (136-145); Total Bilirubin 0.3 mg/dL (0.15-1.2); Total Protein 6.9 g/dL (6.6-8.7)
[2020-12-31 03:13] LABS: Alanine Aminotransferase 32 U/L (0-33)
[2020-12-31 03:20] LABS: Partial Thromboplastin Time 59.4 SECONDS (23.9-36.7)
[2020-12-31] MEDS: sodium chloride 0.9% 1,000 ML 100 ML IV ×3 (03:44→23:28)
--- NOTE | 2020-12-31 03:52 | PC.NURSE ---
Patient requesting a stool softener. Dr. Bell notified. Awaiting response.
[2020-12-31] MEDS: diphenhydrAMINE 50 mg Capsule PO (05:57)
--- NOTE | 2020-12-31 06:57 | XACV_ITS ---
Exam Room: [facility] Ht: 165 cm Wt: 87 kg BSA: 2.02 m2 Gender: Female : 1960 Any Known Allergies: Penicillins Exam Priority: Routine Procedure(s): Procedure Description: Diagnostic procedure Procedure Description: Left ventriculography Procedure Description: Coronary Angiography Diagnostic Cath Status: Elective Diagnostic Findings * No disease noted in the Left Main, Left Anterior Descending, Right, or Circumflex coronary arteries. * Coronary angiography shows right dominance. PCI Status: Elective Conclusions 1. No disease noted in the Left Main, Left Anterior Descending, Right, or Circumflex coronary arteries. Recommendations * Continue current medical management and risk factor modification. Ventriculography Ejection Fraction: 60.0 % Left Ventriculography Findings: * Left ventricle ejection fraction normal no wall motion abnormality estimated ejection fraction 60%. Pressures Phase:Rest AO : 118 / 67 ( 87 ) @ 6:30:00 AM 115 / 65 ( 85 ) @ 6:30:00 AM LV : 129 / -4 / 18 @ 6:29:00 AM 241 / 108 / 170 @ 6:30:00 AM 129 / 0 / 23 @ 6:30:00 AM Valves Phase:DefaultPhase AV : 11.0 @ 11:29:31 AM AV Mean Gradient: 8.0 @ 11:29:31 AM Clinical Evaluation EBL: 5mL-10mL Procedural Details Pre-Procedure Time Out. Identified patient by full name and date of as verbalized by the patient/guarantor. Does the consent match the physician's order: Yes. Accurate & Complete Informed Consent: Yes. Inpatient/Outpatient History & Physical on Chart: Yes. If H&P is completed, is and addenduem needed: No; If yes, is the addendum complete: N/A. Visualize and Verify Site with Patient/Guarantor: N/A. Relevant Radiology Images available: Yes. Pre-op teaching completed and patient verbalized understanding. The risks, benefits, and alternatives of sedation and/or procedure were discussed by physician. The patient agrees to continue. Procedure started. Correct patient, site and procedure confirmed by cath team. Current diagnosis: Chest Pain. PERRLA. 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 Lungs clear x 5 lobes. IV Site on Arrival: 20 gauge in the right anticubital. IV Fluids: 0.9% NaCl at KVO. 0 mL infused prior to incinerator plant laborer. Oxygen started at 2liters/min via nasal canula. bilateral groins was prepped with chloroprep then draped in the usual sterile fashion. Physician notified. Baseline sample Acquired. HR: 82 BPM. Physician arrived. Equipment: 6F - Radial. CarbonFlow Manifold Kit Model BT 2000. Cardiac Cath Pack. Heparinized Saline (2 units/mL), 1000 mL bag. Physician scrubbed in. Immediate Pre-Procedure Time Out. Correct Patient: Yes; Correct Procedure: Yes; Correct Site: Yes; Correct Patient Position: Yes; Correct Supplies: Yes; Dried Flammable Prep: Yes; Blood Products Available: No;. Lidocaine 1% infiltrated to the right radial. Arterial access obtained. A 5 peruvian TIG catheter in over wire. Multiple views taken of left coronary artery. Catheter redirected to the RCA. Multiple views taken of right coronary artery. Catheter out. A 5 peruvian Angled Pig catheter in over wire. EDP Sample taken: LV 129/-5,18; HR: 73 BPM; SpO2: 90%. LV gram performed in LAURENT @ 10 mL/second for a total of 30 mL. EDP Sample taken: LV 241/108,170; HR: 71 BPM; SpO2: 91%. Pullback taken: LV 129/-1,23; AO 118/67(87); Mean: 8mmHg, Peak to Peak: 11mmHg, SEP: 17sec/min; HR: 71 BPM; SpO2: 90%. Catheter out. TR band placed. Hemostasis obtained. A TR Band was successful obtaining hemostatsis at the Right Radial artery insertion site. Post Procedure: Pulses reassessed and unchanged. PERRLA. 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 No VTE prophylaxis required. Medication's Wasted: Lidocaine 1% = 18 mL. Medication's Wasted: Nitro = 49.8 mg. Medication's Wasted: Heparin = 1000 units mL. Total IV fluids: 250 mL. Contrast type used: Omnipaque 300 mgI/mL, 500 mL bottle. Post-op diagnosis: Normal Coronaries. Complications: None. Estimated blood loss: 5mL-10mL. Vital chart was stopped. Procedure completed. Patient transferred by wheelchair to 1st floor. Access Site Site: Right Radial artery Sheath Size: 6 Fr Hemostasis Method: TR Band Hemostasis Success: Successful Procedure Medications Start: 7:11 AM Stop: 7:11 AM Medication: Versed Amount: 1 mg Route: I.V. Start: 7:11 AM Stop: 7:11 AM Medication: Fentanyl Amount: 50 mcg Route: I.V. Start: 7:17 AM Stop: 7:17 AM Medication: Versed Amount: 1 mg Route: I.V. Start: 7:17 AM Stop: 7:17 AM Medication: Fentanyl Amount: 50 mcg Route: I.V. Start: 7:19 AM Stop: 7:19 AM Medication: Nitrogylcerin Amount: 200 mcg Route: I.A. Start: 7:21 AM Stop: 7:21 AM Medication: 0.9% Saline Amount: 250 ml Route: I.V. bolus I, the attending physician, have reviewed and verified all procedure medications. Yes, all medications given per verbal order History/Risk Factors Hypertension: Yes Dyslipidemia: No Peripheral Arterial Disease (PAD): No Myocardial Infarction (KS): No Obesity: No Renal Disease: No Tobacco Use: Former Prior Interventions PCI: No CABG: No Valve Surgery: No Report Signatures Finalized by Heidi Multani MD on 01/10/2021 09:18 PM
--- NOTE | 2020-12-31 07:45 | W.PM.OPSUD ---
Surgery/Procedure H&P Update DATE OF PROCEDURE: December 31, 2020 DATE H&P PERFORMED: 12/30/20 H&P UPDATE INFORMATION: I have reviewed H&P completed within last 30 days, I have examined patient prior to procedure and No changes to prior documentation PREOP DIAGNOSIS: Chest pain, abnormal EKG PATIENT REASSESSED PRIOR TO SEDATION, WITH NO CHANGE NOTED: Yes PHYSICAL EXAM: alert, oriented x 3 and clear to auscultation bilaterally AIRWAY EVAL/ANESTHESIA PLAN: ASA II, Risks, benefits & alternatives of sedation and/or procedure discussed and Patient agrees to continue as planned
--- NOTE | 2020-12-31 08:30 | PC.NURSE ---
patient heard yelling nurse down the lam then call Light came on This nurse entered room to find Tr band was off patient was bleeding from angiogram site on right wrist. TR band re-applied; bleeding stopped no hematoma or other adverse events patient remains stable
[2020-12-31 08:45] LABS: Partial Thromboplastin Time 32.6 SECONDS (23.9-36.7)
[2020-12-31] MEDS: ipratropium-albuterol 3 mL Neb INHALATION ×3 (09:01→20:50)
[2020-12-31] MEDS: predniSONE 20 mg Tablet PO (09:04)
[2020-12-31] MEDS: doxycycline 100 mg Tablet PO ×2 (09:04→18:04)
[2020-12-31] MEDS: pantoprazole DR 40 mg Tablet PO ×2 (09:04→18:04)
[2020-12-31] MEDS: polyethylene glycol 3350 Pkt 17 gm PO ×2 (09:05→18:04)
[2020-12-31] MEDS: magnesium citrate Btl 296 mL PO (12:53)
--- NOTE | 2020-12-31 14:09 | P.PN_ITS ---
Subjective Subjective: Interval history: Patient underwent left heart cath which appeared to be normal no coronary artery disease noted. Medications: Reviewed: Yes Vitals/I&O/Wt Last Vital Signs Temp 97.8 F 12/31/20 12:00 Pulse 77 12/31/20 13:45 Resp 13 12/31/20 13:45 BP 94/67 12/31/20 14:00 Pulse Ox 98 12/31/20 12:00 12/30/20 12/31/20 12/31/20 22:59 06:59 14:59 Intake Total 538.177 / 1639.013 1777.66 / 2385.807 480 / 480 Balance 538.177 / 6771.041 2717.66 / 2385.807 480 / 480 Weight last 48 hrs Weight 191 lb 3.2 oz Weight 189 lb 6.4 oz Weight 180 lb Physical Exam Narrative: EXAM NARRATIVE: GENERAL: Patient is alert, awake and oriented x3. NECK: No jugular vein distension. HEENT: No cyanosis. No icterus. No pallor. HEART: Regular S1 and S2. No murmur, rub or gallop. LUNGS: Clear to auscultate bilaterally. ABDOMEN: Soft, nontender and nondistended. Positive bowel sounds. No guarding, rebound or tenderness. CENTRAL NERVOUS SYSTEM: Grossly nonfocal. EXTREMITIES: Lower extremities without edema bilaterally. Pulses palpable in the lower extremities, both dorsalis pedis and posterior tibial. Const: COMMON NORMALS: alert Resp: COMMON NORMALS: clear to auscultation bilaterally AUSCULTATION: clear to auscultation bilaterally Neuro: SENSORIUM/ORIENTATION: Yes alert Data : 12/31/20 02:15 12/31/20 02:15 A&P Assessment and plan (1) Chest pain: Worsening of chest pain with increasing frequency and duration along with shortness of breath in a patient with history of tobacco abuse is suspicious for angina. Patient was offered stress test which she declined and says she will never do it. Since she is high risk for acute current syndrome and she has elevated cardiac markers we will therefore proceed with left heart cath for risk stratification. Patient will be loaded with Plavix. She is on statin and LIANNE inhibitor. We will start her on beta-wang. I have personally explained all risk benefit and alternative for the procedure to the patient and also over the phone to her . Patient understand the risk for stroke arrhythmia urgent emergent surgery bypass. She would like to proceed with it. Patient underwent left heart cath which showed normal coronaries. Left ventricular ejection fraction was normal 60% Status: Acute Qualifiers: Chest pain type: precordial pain Qualified Code(s): R07.2 - Precordial pain (2) Elevated heart rate with elevated blood pressure and diagnosis of hypertension: IV fluid was given patient appeared to be dehydrated she is feeling better. Status: Acute (3) Renal insufficiency: Continue IV fluid Status: Acute (4) Hypotension: Increase salt intake, continue IV fluid Status: Acute Qualifiers: Hypotension type: unspecified hypotension type Qualified Code(s): I95.9 - Hypotension, unspecified Attestations Medical Necessity Statement*: As per medicine Coding Level of Care Code New Pt Acute Manager Community Development for [facility] Fwd Patient Type New History Comprehensive Exam Comprehensive Medical Decision Making Moderate Complexity Diagnoses Chest pain R07.2 Chest pain type: precordial pain Elevated heart rate with elevated blood pressure and diagnosis of hypertension I10; R00.9 Renal insufficiency N28.9 Hypotension I95.9 Hypotension type: unspecified hypotension type
--- NOTE | 2020-12-31 14:48 | CTR_ITS ---
PROCEDURE INFORMATION: Exam: CT Angiography Head With Contrast, Arteriography Exam date and time: 12/31/2020 5:00 PM Age: 60 years old Clinical indication: Other: Subclavian steal syndrome; Additional info: R/O subclavian steal syndrome TECHNIQUE: Imaging protocol: Computed tomography angiography of the head with contrast. Exam focused on the arteries. 3D rendering (Not supervised by radiologist): MIP and/or 3D reconstructed images were created by the technologist. Total images: 998 Radiation optimization: All CT scans at this facility use at least one of these dose optimization techniques: automated exposure control; mA and/or kV adjustment per patient size (includes targeted exams where dose is matched to clinical indication); or iterative reconstruction. Contrast material: OMNI 350; Contrast volume: 95 ml; Contrast route: INTRAVENOUS (IV); COMPARISON: No relevant prior studies available. RADIATION DOSE METRICS: Total DLP (mGy-cm): 2812.63 FINDINGS: ANTERIOR CIRCULATION: Right internal carotid artery: Mild cerebral arteriosclerosis of the internal carotid artery terminus without hemodynamically significant stenosis. Intracranial segment is patent with no significant stenosis. No aneurysm. Right middle cerebral artery: Unremarkable. No occlusion or significant stenosis. No aneurysm. Right anterior cerebral artery: Unremarkable. No occlusion or significant stenosis. No aneurysm. Left internal carotid artery: Mild cerebral arteriosclerosis of the internal carotid artery terminus without hemodynamically significant stenosis. Intracranial segment is patent with no significant stenosis. No aneurysm. Left middle cerebral artery: Unremarkable. No occlusion or significant stenosis. No aneurysm. Left anterior cerebral artery: Unremarkable. No occlusion or significant stenosis. No aneurysm. POSTERIOR CIRCULATION: Right vertebral artery: Hypoplastic but patent. No occlusion or significant stenosis. No aneurysm. Left vertebral artery: Unremarkable. No occlusion or significant stenosis. No aneurysm. Basilar artery: Unremarkable. No occlusion or significant stenosis. No aneurysm. Right posterior cerebral artery: Unremarkable. No occlusion or significant stenosis. No aneurysm. Left posterior cerebral artery: Unremarkable. No occlusion or significant stenosis. No aneurysm. Paranasal sinuses: Mild chronic left maxillary and sphenoid sinusitis. IMPRESSION: 1. Mild cerebral arteriosclerosis of the bilateral internal carotid artery terminus without hemodynamically significant stenosis. 2. Hypoplastic right vertebral artery but patent. PROCEDURE INFORMATION: Exam: CT Angiography Neck With Contrast Exam date and time: 12/31/2020 5:00 PM Age: 60 years old Clinical indication: Other: Subclavian steal syndrome; Additional info: R/O subclavian steal syndrome TECHNIQUE: Imaging protocol: Computed tomography angiography of the neck with contrast. 3D rendering (Not supervised by radiologist): MIP and/or 3D reconstructed images were created by the technologist. Radiation optimization: All CT scans at this facility use at least one of these dose optimization techniques: automated exposure control; mA and/or kV adjustment per patient size (includes targeted exams where dose is matched to clinical indication); or iterative reconstruction. Contrast material: OMNI 350; Contrast volume: 95 ml; Contrast route: INTRAVENOUS (IV); COMPARISON: No relevant prior studies available. RADIATION DOSE METRICS: Total DLP (mGy-cm): 2812.63 FINDINGS: Right common carotid artery: Arteriosclerosis the common carotid artery bulb but without evidence of hemodynamically significant stenosis of 60% or greater. No dissection or occlusion. Right internal carotid artery: Arteriosclerosis at the ostium but without hemodynamically significant stenosis of 60% or greater visible. No hemodynamically significant stenosis of the extracranial segment. No dissection or occlusion. Right external carotid artery: No occlusion or stenosis of the origin. Right vertebral artery: Hypoplastic but patent. No stenosis. No dissection or occlusion. Left common carotid artery: No stenosis. No dissection or occlusion. Left internal carotid artery: Proximal arteriosclerosis with stenosis less than 30%. No hemodynamically significant stenosis of the extracranial segment. No dissection or occlusion. Left external carotid artery: No occlusion or stenosis of the origin. Left vertebral artery: No stenosis. No dissection or occlusion. Aorta: Bovine aortic arch which is a normal anatomical variant. Arteriosclerosis. Bones/joints: No visible acute osseous abnormality. Advanced degenerative disease degenerative disc disease of the cervical spine with reversal normal cervical lordosis. Spondylosis deformans. Soft tissues: Unremarkable for age. No significant soft tissue swelling. Lungs: COPD/chronic bronchitis. CT/CT angio headneck* 43993/[id number] IMPRESSION: 1. Arteriosclerosis but no visible evidence of hemodynamically significant stenosis. 2. No visible evidence of vascular occlusion or dissection. 3. Hypoplastic right vertebral artery but without evidence for occlusion or hemodynamically significant stenosis. 4. Bovine aortic arch which is a normal anatomical variant. 5. No findings raising suspicion for subclavian steal. REFERENCES: NASCET CRITERIA. The degree of internal carotid artery stenosis is based on NASCET criteria. Normal is no stenosis. Mild is less than 50% stenosis. Moderate is 50-69% stenosis. Severe is 70% to 99% stenosis. Total occlusion is no detectable patent lumen. Radiation Dose CTDIVOL = (mGy): DLP = 2812.63~2812.63 (mGy-cm)
--- NOTE | 2020-12-31 15:13 | PC.NURSE ---
spoke with Dr. Sexton with concerns of patient blood pressure when taken on left upper arm patient blood pressure has been presenting low checked blood pressure on right ankle and blood pressure up within normal limits telephone instructions received from Dr sexton to obtain CTA head and neck to R/O subclavian steal syndrome
[2020-12-31] MEDS: iohexol 350 mg/mL 100 mL Btl IV (17:05)
[2020-12-31] MEDS: atorvastatin 40 mg Tablet 20 MG PO (18:04)
--- NOTE | 2020-12-31 18:48 | PC.NURSE ---
discussed cta results with Dr. Martinez verbal instructions to obtain US duplex of bilateral of upper extremities
--- NOTE | 2020-12-31 19:57 | PC.NURSE ---
Bedside report received from Zee ESTES. Patient is sitting in bed watching TV. Patient is A & O x4. Patient has no complaints of pain or other needs at this time. Nurse will continue to monitor.
--- NOTE | 2020-12-31 22:53 | P.PN_ITS ---
Subjective Subjective: Interval history: Reports shortness of breath overall is better. Denies chest pain. Ambulating little bit better. Reports episodic lightheadedness, especially when working with her arms, washing dishes. Also with turning. Vitals/I&O/Wt Last Vital Signs Temp 98.3 F 12/31/20 18:49 Pulse 74 12/31/20 22:00 Resp 20 H 12/31/20 20:56 BP 135/77 12/31/20 18:49 Pulse Ox 95 12/31/20 20:56 12/31/20 12/31/20 12/31/20 06:59 14:59 22:59 Intake Total 1303.66 / 2385.807 1480 / 1480 480 / 1960 Balance 1303.66 / 2385.807 1480 / 1480 480 / 1960 Weight last 48 hrs Weight 86.727 kg Weight 85.91 kg Physical Exam Const: COMMON NORMALS: no acute distress and patient oriented x3 NUTRITIONAL APPEARANCE: overweight OTHER: Returning from the restroom. Pleasant, conversant. HENMT: COMMON NORMALS: oropharynx normal Neck/C-Spine: COMMON NORMALS: no JVD Resp: COMMON NORMALS: normal respiratory effort and clear to auscultation bilaterally AUSCULTATION: clear to auscultation bilaterally, no wheezes (mild) and diminished lung sounds (Improving air entry) Cardio: COMMON NORMALS: no JVD, regular rhythm, S1 normal heart sound present, S2 normal heart sound present and No murmurs present (Cardio) RHYTHM: regular rhythm HEART SOUNDS: S1 normal heart sound present and S2 normal heart sound present GI: COMMON NORMALS: Normal to inspection, nondistended, normoactive bowel sounds present, Soft to palpation and non-tender PALPATION: Yes Soft to palpation Extremity: COMMON NORMALS: no joint enlargement and no pedal edema Neuro: COMMON NORMALS: patient oriented x3 and moves all extremities Skin: COMMON NORMALS: no rashes or lesions noted GENERAL SKIN EXAM: no rashes or lesions noted Data : 12/31/20 02:15 12/31/20 02:15 A&P Assessment and plan (1) Dyspnea: Dyspnea overall improving. Wheezing has resolved. Air entry somewhat better. No coronary disease requiring intervention on angiography. Blood pressure still soft. As such we will taper down prednisone, although will not yet discontinue. COPD with recent exacerbation for which she is recovering. She reports occasionally her heart rates will go into what would seem like 190 bpm to her without apparent reason. Denies history of atrial fibrillation or other arrhythmia. Monitor on telemetry. Consideration of event monitoring after discharge. Follow-up TTE which is pending. Status: Acute Qualifiers: Dyspnea type: unspecified Qualified Code(s): R06.00 - Dyspnea, unspecified (2) Hypotension: Blood pressure still low today. This is despite holding antihypertensives. We are for now continuing prednisone, wean down slowly. She reports episodes of dizziness with certain activities with her arms, like wa shing dishes, also appears blood pressure better in her legs compared to the arms. CT angiogram obtained, although does not appear to show significant stenosis. Will assess upper extremity duplex to see if may be having subclavian steal. Continue to hold antihypertensives, diuretic. Follow-up TTE which is pending. Status: Acute Qualifiers: Hypotension type: unspecified hypotension type Qualified Code(s): I95.9 - Hypotension, unspecified (3) Non-ST elevated myocardial infarction (non-STEMI): No chest pain. No stent double disease on coronary angiography. Status: Acute (4) Renal insufficiency: With some improvement. Creatinine slightly worse today 1.2. Monitor. Unknown whether chronic kidney disease but she denies. Hold antihypertensives, diuretic while blood pressure soft. Status: Acute (5) COPD (chronic obstructive pulmonary disease): With soft blood pressures continue for now with current dose prednisone. We will taper off slowly. Recent COPD exacerbation. Continue her antibiotic. Breathing treatments. Status: Acute (6) Quit smoking: Quit smoking 2 weeks ago. Continue to encourage abstinence. Status: Acute (7) Has recently quit alcohol use: Quit drinking alcohol 1 month ago. Continue to encourage abstinence. Monitor for withdrawal. Status: Acute Attestations Medical Necessity Statement*: Continue admission for assessment management of episodes of low hypotension with prior hypertension. Coding Level of Care Code Acute Microstrategy Architect for [facility] Diagnoses Dyspnea R06.00 Dyspnea type: unspecified Hypotension I95.9 Hypotension type: unspecified hypotension type Non-ST elevated myocardial infarction (non-STEMI) I21.4 Renal insufficiency N28.9 COPD (chronic obstructive pulmonary disease) J44.9 Quit smoking Z87.891 Has recently quit alcohol use Z87.898
[2020-12-31] MEDS: ondansetron 2 mg/ML SDV 2 mL 4 MG IVP (23:27)
[2020-12-31] MEDS: temazepam 15 mg Capsule PO (23:27)
[2020-12-31] MEDS: lidocaine 2% viscous 15 ML, aluminum-mag hydrox-simethicon 30 ML, sucralfate oral liq 1 GM PO (23:47)
[2021-01-01] VITALS (9 sets, daily range): BP systolic 111–134; BP diastolic 58–81; PULSE 65–88; RESP 13–20; TEMP 36.6–37.1; O2SAT 93–98
--- NOTE | 2021-01-01 01:09 | PC.NURSE ---
Contacted Dr. Bell requesting a GI cocktail for patient C/O indigestion.
[2021-01-01 05:37] LABS: Basophils % 0.2 %; Eosinophils % 0.2 %; Hematocrit 37.2 % (37.0-47.0); Hemoglobin 11.5 g/dL (11.5-15.3); Lymphocytes # 2.5 10^3/uL (0.8-4.8); Lymphocytes % 28.2 %; Mean Corpuscular HGB Conc 30.9 g/dL (30.0-36.0); Mean Corpuscular Hemoglobin 30.4 pg (28.0-34.0); Mean Corpuscular Volume 98.4 fL (81-99); Mean Platelet Volume 11.1 fL (7.4-10.4); Monocytes # 0.8 10^3/uL (0.2-0.9); Monocytes % 8.6 %; Neutrophils # 5.59 10^3/uL (1.8-7.7); Nucleated Red Blood Cells % 0 %; Platelet Count 234 10^3/cmm (130-400); Red Blood Count 3.78 10^6/uL (4.1-5.3); Red Cell Distribution Width 12.8 % (12.1-15.1)
[2021-01-01 05:49] LABS: Alanine Aminotransferase 29 U/L (0-33); Albumin Level 3.8 g/dL (3.5-5.2); Alkaline Phosphatase 55 IU/L (35-105); Anion Gap 10.2 (5-19); Aspartate Amino Transferase 10 U/L (0-32); Blood Urea Nitrogen 20 mg/dL (8-23); Calcium 8.6 mg/dL (8.5-10.5); Carbon Dioxide 27 mmol/L (22-29); Chloride 105 mmol/L (98-107); Globulin 2.4 g/dL (1.3-4.6); Glomerular Filtration Rate 73.2 mL/min (90-130); Glucose 103 mg/dL (65-115); Osmolality Calculated 289 mOsm/kg (285-295); Potassium 4.2 mmol/L (3.5-5.1); Sodium 138 mmol/L (136-145); Total Bilirubin 0.3 mg/dL (0.15-1.2); Total Protein 6.2 g/dL (6.6-8.7)
[2021-01-01] MEDS: doxycycline 100 mg Tablet PO (08:30)
[2021-01-01] MEDS: pantoprazole DR 40 mg Tablet PO (08:31)
[2021-01-01] MEDS: sucralfate 1 gm Tablet PO (08:59)
[2021-01-01] MEDS: predniSONE 20 mg Tablet PO (09:00)
[2021-01-01] MEDS: sodium chloride 0.9% 1,000 ML 100 ML IV (09:18)
--- NOTE | 2021-01-01 10:08 | USR_ITS ---
PROCEDURE INFORMATION: Exam: US Duplex Left Upper Extremity Veins, Limited Exam date and time: 01/01/2021 12:31 PM Age: 60 years old Clinical indication: Swelling (edema) of limb and other: Bruising; Upper extremity, left; Additional info: Feeling of neck swelling - assess neck for vte TECHNIQUE: Imaging protocol: Real-time Duplex ultrasound of the Left Upper Extremity with 2-D liu scale, color Doppler flow and spectral waveform analysis with image documentation. Limited exam focused on the left upper extremity veins. COMPARISON: No relevant prior studies available. FINDINGS: Left deep veins: Unremarkable. Axillary and brachial veins are patent throughout without thrombus. Normal Doppler waveforms. Normal compressibility and/or augmentation response. Visualized internal jugular and subclavian veins are patent. Left superficial veins: There is superficial thrombosis of the left basilar vein in the mid forearm. Soft tissues: Unremarkable. US/[place] [id number] IMPRESSION: 1. No evidence of deep vein thrombosis. 2. Superficial thrombosis of the left basilar vein in the mid forearm.
[2021-01-01] MEDS: ipratropium-albuterol 3 mL Neb INHALATION (10:55)
--- NOTE | 2021-01-01 11:37 | PC.CHAP ---
Pastoral Care Encounter/Spiritual Assessment Type of Contact [] Declined installer interior assemblies visit [] Patient/Family/Request visit [] Outpatient visit [] Follow-up visit [] Physician referral [] Code/Alert [XX] Routine visit [] Staff referral [] Actively dying [] Patient sleeping [] Family support [] [] Out of room [] Palliative care [] [XX] Receiving care in room [] Pre-surgical visit [] Trauma [] Long length of stay [] ICU visit [] Other: Relational/Emotional Strength [] Patient feels connected with others/family/visitors/staff [] Distress [] Loneliness/isolation [] Abandonment Spirituality of Patient [] Person of Petty [] Attends Anabaptist of their Petty [] Believes in Prayer [] Reads Bible or Orthodoxy materials [] There are Spiritual issues to be addressed Ict Quality Assurance Engineer Interventions [] Prayer [] Active listening [] Non-anxious presence [] Spiritual/emotional support [] Crisis/trauma care [] Spiritual counseling [] Bereavement support [] Provided bereavement packet [] Provided Bible/devotional materials [] Provided toy/stuffed animal, coloring book to patient or family member [] Provided Communion [] Anointing/Ewing [] Salvation [] Completed spiritual assessment [] Other: Impact on Illness or Injury [] Angry [] Fearful [] Anxious [] Often cries [] Exhaustion [] Unable to work [] Unable to attend moravian [] Unable to walk/stand [] Unable to read [] Unable to drive [] Unable to eat/drink [] Unable to sleep [] Unable to be with family [] Patient intubated [] Other: Summary Time spent with patient
[2021-01-01 11:45] LABS: Rapid Strep A Test Negative (Negative)
--- NOTE | 2021-01-01 15:07 | PM.DCS ---
Discharge Providers Date of Admission: 12/30/20 20:02 Date of Discharge: January 01, 2021 Attending Provider at Admission: Ronaldo Martinez Attending Provider at Discharge: Ronaldo Martinez Diagnoses at Discharge Discharge Diagnosis (1) Dyspnea: Status: Acute Qualifiers: Dyspnea type: unspecified Qualified Code(s): R06.00 - Dyspnea, unspecified (2) Hypotension: Status: Acute Qualifiers: Hypotension type: unspecified hypotension type Qualified Code(s): I95.9 - Hypotension, unspecified (3) Non-ST elevated myocardial infarction (non-STEMI): Status: Acute (4) Renal insufficiency: Status: Acute (5) COPD (chronic obstructive pulmonary disease): Status: Acute (6) Quit smoking: Status: Acute (7) Has recently quit alcohol use: Status: Acute Reason for Visit Reason for Visit: SOB, DIZZY, HARD TO WALK Hospital Course Hospital Course Pleasant 60-year-old lady with history of COPD, not normally on oxygen, recently quit smoking about 2 weeks ago, HLD, HTN, previously daily EtOH intake with 6 pack of beer a day, but stopped about a month ago, recently admitted at [facility] where she was treated for exacerbation of COPD, status post [employer] COVID-19 vaccine on 12/12 presented to the hospital with complaints of shortness of breath, episodic dizziness, dyspnea on exertion, funny feeling in the chest , with noted moderate troponin abnormality in ER, was initiated on treatment for unstable angina. On presentation also noted hypotensive, blood pressure 83/58. Antihypertensives with lisinopril-HCTZ were held, as was baclofen. Received fluid challenge. Blood pressures remain soft through the hospitalization, but gradually improving. Prednisone as prescribed to her during recent discharge was continued at 40 mg daily due to consideration of possible intubation of mild renal insufficiency. She was continued on antibiotic in the hospital. Her breathing gradually continue to improve. Dyspnea exertion improved. Still with funny feeling in her chest, with abnormal troponin, multiple risk factors of coronary disease was assessed by coronary angiography after consideration of risks and benefits with cardiology. Coronary arteries found patent. She reported having episodes of dizziness, especially when doing something like washing dishes, sometimes when turning. With somewhat fluctuating blood pressures, and possibly some difference between upper and lower extremities, was additionally assessed by CT angiogram with finding of bovine aortic arch, normal variant, but otherwise no significant stenosis. Physiologically no subclavian steal seen on arterial duplex. As she intermittently experiences palpitations and heart rates which she feels go as high as 180s-190s, after discussion with cardiology Dr. Multani we are setting her up with event monitor. Please follow-up on results. She also reported feeling intermittent sensation of pain on swallowing, fullness in her throat. On examination appears to have some enlargement of tonsils. CT angiogram of the neck discussed with vRad, and no visible enlargement of thyroid, thymus or other soft tissues, but does have appearance of enlarged tonsils without any peritonsillar abscess. Rapid strep was negative. She is referred to ENT for additional assessment. Please encourage her to continue to abstain from smoking and alcohol. Kidney injury on presentation, creatinine 1.4, has improved, currently creatinine 1.2. Please follow-up for continued improvement in office. At discharge her blood pressure medications are discontinued, as is baclofen. Please reassess blood pressures at next visit. Due to indigestion which responded to GI cocktail he is continued on PPI and is started on sucralfate. Please follow-up symptoms. Please consider referral for endoscopic evaluation if symptoms persist given smoking history to exclude malignancy as possible cause of her symptoms. Physical Exam Const: COMMON NORMALS: no acute distress and patient oriented x3 NUTRITIONAL APPEARANCE: overweight OTHER: Returning from the restroom. Pleasant, conversant. HENMT: COMMON NORMALS: oropharynx normal Neck/C-Spine: COMMON NORMALS: no JVD Resp: COMMON NORMALS: normal respiratory effort and clear to auscultation bilaterally AUSCULTATION: clear to auscultation bilaterally Cardio: COMMON NORMALS: no JVD, regular rhythm, S1 normal heart sound present, S2 normal heart sound present and No murmurs present (Cardio) RHYTHM: regular rhythm HEART SOUNDS: S1 normal heart sound present and S2 normal heart sound present GI: COMMON NORMALS: Normal to inspection, nondistended, normoactive bowel sounds present, Soft to palpation and non-tender PALPATION: Yes Soft to palpation Extremity: COMMON NORMALS: no joint enlargement and no pedal edema Neuro: COMMON NORMALS: patient oriented x3 and moves all extremities Skin: COMMON NORMALS: no rashes or lesions noted GENERAL SKIN EXAM: no rashes or lesions noted Discharge Data Data Completed and Pending: Completed Studies During Hospitalization Category Date Time Status CTA head neck [CT angio headneck* [id number]] Routin e Cat Scan 12/31/20 14:48 Completed XR chest 1V ruperto ble [id number] Stat Exams 12/29/20 14:42 Completed CV echo complete* [id number] Urgent Ultrasound 12/30/20 20:40 Completed CV unlisted vascu lar [id number] Routine Ultrasound 01/01/21 18:39 [place] [id number] Routin e Ultrasound 01/01/21 10:08 Completed Pending at discharge Category Date Time Status RETIREMENT ACTUARY request for service Routin e Exams 12/31/20 06:57 Ordered Streptococcus Cul ture Group A Routi ne Lab 01/01/21 10:45 Received NM leandro perf SPECT r/s* [id number] Routin e Nuc Med 01/02/21 08:00 Ordered Labs from last 24 hours 01/01/21 01/01/21 01/01/21 10:45 04:41 04:41 WBC 9.0 RBC 3.78 L Hgb 11.5 Hct 37.2 MCV 98.4 MCH 30.4 MCHC 30.9 RDW 12.8 Plt Count 234 MPV 11.1 H Neut % (Auto) 62.0 Lymph % (Auto) 28.2 [place] % (Auto) 8.6 Eos % (Auto) 0.2 Baso % (Auto) 0.2 Neut # (Auto) 5.59 Lymph # (Auto) 2.5 [place] # (Auto) 0.8 Eos # (Auto) 0.0 Baso # (Auto) 0.0 Nucleated RBC % (a uto) 0 Nucleated RBCs # 0.0 Sodium 138 Potassium 4.2 Chloride 105 Carbon Dioxide 27 Anion Gap 10.2 BUN 20 Creatinine 0.8 GFR Calculation 73.2 L Glucose 103 Calculated Osmolal ity 289 Calcium 8.6 Total Bilirubin 0.3 AST 10 ALT 29 Alkaline Phosphata se 55 Total Protein 6.2 L Albumin 3.8 Globulin 2.4 Group A Strep Rapi d Negative Vitals: Last Vital Signs Temp 98.7 F 01/01/21 14:30 Pulse 88 01/01/21 14:30 Resp 20 H 01/01/21 14:30 BP 111/61 01/01/21 14:30 Pulse Ox 97 01/01/21 14:30 Discharge Plan Discharge Patient Disposition: Home Condition: Stable Prescriptions: New prednisone 20 mg Tablet 20 mg PO DAILY Qty: 11 RF: 0 polyethylene glycol 3350 17 gram Powder In Packet 17 g PO BID Qty: 60 RF: 0 sucralfate 1 gram Tablet 1 g PO BIDAC Qty: 60 RF: 0 Continued ipratropium-albuterol 0.5 mg-3 mg(2.5 mg base)/3 mL solution for nebulization 3 ml INHALATION QID RF: 0 Tylenol Extra Strength 500 mg Tablet 500 mg PO PRN RF: 0 simvastatin 40 mg tablet 40 mg PO QPM RF: 0 magnesium oxide 400 mg (241.3 mg magnesium) tablet 400 mg PO DAILY RF: 0 pantoprazole 40 mg tablet,delayed release (DR/EC) 40 mg PO BID RF: 0 ProAir HFA 90 mcg/actuation HFA aerosol inhaler 2 puff INHALATION Q4H PRN (Reason: Shortness Of Breath) RF: 0 fluticasone propionate 50 mcg/actuation spray,suspension 1 - 2 spray INTRANASAL BID PRN (Reason: Allergy Symptoms) RF: 0 metformin 500 mg tablet extended release 24 hr 500 mg PO QPM RF: 0 doxycycline hyclate 100 mg tablet 100 mg PO BID RF: 0 Spiriva with HandiHaler 18 mcg capsule, w/inhalation device 1 cap INHALATION DAILY RF: 0 Prolia 60 mg/mL syringe 60 mg SUBCUT .EVERY 6 MONTHS RF: 0 Discontinued prednisone 20 mg tablet 40 mg PO DAILY RF: 0 baclofen 20 mg tablet 20 mg PO TID PRN (Reason: Muscle Spasm) RF: 0 lisinopril-hydrochlorothiazide 20-25 mg tablet 1 tab PO QAM RF: 0 Discharge Orders: Discharge Order (Routine); Ordered 01/01/21 Ordered By: Ronaldo Martinez Other Ambulatory Orders: CA cardiac event monitor (Routine) Timeframe: 1 Day Facility: [facility] - Location: Cardiac Diagnostic Laboratory Ordered By: Ronaldo Martinez Referrals: Lillian Palomo FNP [Non-Staff] - 4-7 days ([facility] will contact you to schedule an follow-up appointment in 4 to 7 days. If you haven't heard from them by Saturday. Please call ) Heidi Multani MD [Physician] - Michael Mahajan MD [Physician] - 2 weeks ([facility] will conatct you to schedule an appointment in 2 weeks. If you haven't heard from them by Saturday/ Please call ) Discharge Diet: Cardiac and Soft Mechanical Discharge Activity: Increase activity as tolerated Patient Instructions: Sucralfate (By mouth), Prednisone (By mouth), Polyethylene Glycol 3350 (By mouth), Chest Pain (DC), Hypotension (DC), COPD Stoplight, Chest Pain Stoplight Activity Restrictions/Additional Instructions: To see if you qualify for In Home Services under your Medicaid, please call . You will complete an interview by phone and they will determine if you qualify. Please follow-up with ear nose throat doctor with regards to globus sensation in your throat, enlarged tonsils. If you experience any high fever, any difficulty swallowing food or drink, trouble breathing or other concerns, please seek medical attention immediately. Please discuss with your primary doctor consideration of evaluation of other conditions in your esophagus that may be responsible for pain on swallowing. Please discontinue your blood pressure medications for now. Please monitor your blood pressure at home. If blood pressure started rising, and rise above 130 top number, above 90 bottom number please discuss with your primary doctor about resuming one of the blood pressure medications at a lower dose. Please avoid low blood pressures. Please have your primary care doctor follow-up after acute kidney injury to make sure your kidney function is continuing to return back to normal. Continue the great work to abstain from smoking cigarettes and from any alcohol. Please discontinue baclofen if possible, it may be contributing to low blood pressures and dizziness. Discharge Attestations Time Spent in Discharge Care*: greater than 30 min Quality Metrics Clinical Quality Measures During this hospital stay, did patient experience: None Coding Level of Care Code Acute Chg FW DC note Diagnoses Dyspnea R06.00 Dyspnea type: unspecified Hypotension I95.9 Hypotension type: unspecified hypotension type Non-ST elevated myocardial infarction (non-STEMI) I21.4 Renal insufficiency N28.9 COPD (chronic obstructive pulmonary disease) J44.9 Quit smoking Z87.891 Has recently quit alcohol use Z87.898
--- NOTE | 2021-01-01 15:30 | PC.NURSE ---
arlet discharged home at this time patient provided with discharge instructions as well as follow up care instructions patient alett oriented and in stable condition
--- NOTE | 2021-01-01 18:39 | USR_ITS ---
PROCEDURE INFORMATION: Exam: US Duplex Bilateral Extracranial Arteries Exam date and time: 01/01/2021 8:14 AM Age: 60 years old Clinical indication: Symptoms: Dizziness with certain activities with her arms. ; Additional info: Assess for subclavian steal TECHNIQUE: Imaging protocol: Real-time Duplex ultrasound scan of the bilateral carotid and vertebral arteries combining liu scale, color Doppler and spectral waveform analysis. Bilateral exam. COMPARISON: CT angio headneck* [id number] 12/31/2020 5:13 PM FINDINGS: Right common carotid artery: Unremarkable. No occlusion or stenosis. Waveforms are normal. Right vertebral artery: Unremarkable. Antegrade flow. Left common carotid artery: Unremarkable. No occlusion or stenosis. Waveforms are normal. Left vertebral artery: Unremarkable. Antegrade flow. Other findings: The right subclavian artery is unremarkable with normal patency and waveform. The left subclavian artery is unremarkable with normal patency and waveform. The left radial and ulnar arteries appear normal with normal flow and waveform. There is diminished flow in the right radial artery. There is normal flow in the right ulnar artery. US/CV unlisted vascular [id number] IMPRESSION: 1. Normal bilateral vertebral and subclavian arteries with no evidence of subclavian steal. 2. There is diminished flow in the right radial artery. This may be related to recent catheterization procedure. REFERENCES: SRU CRITERIA. The degree of internal carotid artery stenosis is based on criteria defined by the Society of Radiologists in Ultrasound (SRU). Normal is no stenosis. Mild is less than 50% stenosis. Moderate is 50-69% stenosis. Severe is greater than 69% stenosis to near occlusion. Near occlusion is a markedly narrowed lumen. Total occlusion is no detectable patent lumen.
--- NOTE | 2021-01-02 18:15 | PC.RESP ---
Pulmonary Rehab information sent to patient.
== END 2021-01-01 15:40 | disposition home or self-care (01) | DRG 281 ==
LOC: ER 17:52 → CSU 12-30 06:06
PROVIDERS: Internal Medicine Cardiovascular Disease; Admitting Provider Internal Medicine; Emergency Provider Emergency Medicine; Visit Provider Internal Medicine
DX: I21.4 Non-ST elevation (NSTEMI) myocardial infarction (principal); N17.9 Acute kidney failure, unspecified; J44.9 Chronic obstructive pulmonary disease, unspecified; Z87.891 Personal history of nicotine dependence; E78.5 Hyperlipidemia, unspecified; I10 Essential (primary) hypertension; F10.21 Alcohol dependence, in remission; E86.0 Dehydration; I95.9 Hypotension, unspecified; Z95.3 Presence of xenogenic heart valve; J35.1 Hypertrophy of tonsils
CPT/HCPCS: 36415; 70496; 70498; 71045; 80053; 81001; 83880; 84484; 85025; 85378; 85730; 87081; 87880; 93005; 93306; 93452; 93971; 93998; 94640; 94664; 96374; 99291; C1769; C1887; C1894; G0378; J1644; J2250; J2405; J3010; J3490; J7030; J7040; J7512; Q0163; Q9967

== ENCOUNTER 2021-02-16 10:11 | Outpatient (CLI) | payer MEDICAID, SELFPAY ==
--- NOTE | 2021-02-16 10:16 | CT_ITS ---
WS: [id number] LDCT LUNG CANCER SCREENING TECHNIQUE: Noncontrast CT of the chest with coronal and sagittal reformatted images. CLINICAL INFORMATION: HX OF TOBACCO USE COMPARISON: None. DLP: 52.21 mGy.cm DIvol: 1.[address] scans at [facility] use at least one of these dose optimization techniques: automat ed exposure control; mA and/or kV adjustment per patient size (includes targeted exams where dose is matched to clinical indication); or iterative reconstruction. FINDINGS: Aortic calcification. No mediastinal or hilar lymphadenopathy. No axillary lymphadenopathy. Adrenal g lands are normal. Slightly irregular noncalcified subpleural right apical nodule measuring 5.4 mm. Gil bsegmental atelectasis left lower lobe. Noncalcified nodule left lower lobe medially measuring 3 mm. Subsegmental atelectasis right lower lobe peripherally. CT/CT lung screening [id number] IMPRESSION: LUNG-RADS: 3-Probably Benign FOLLOW UP: 6 Month LDCT
== END 2021-02-16 10:12 | disposition home or self-care (01) ==
LOC: RAD 10:13
PROVIDERS: PCP Nurse Practitioner Family; Visit Provider Internal Medicine Pulmonary Disease
DX: Z12.2 Encounter for screening for malignant neoplasm of respiratory organs (principal); Z87.891 Personal history of nicotine dependence; I70.0 Atherosclerosis of aorta; J98.11 Atelectasis; R91.1 Solitary pulmonary nodule
CPT/HCPCS: 71271

== ENCOUNTER → 2021-03-01 10:31 | Outpatient (BNVA) | payer MEDICAID, SELFPAY | PROVIDERS: PCP Nurse Practitioner Family; Referring Provider Nurse Practitioner Family; Visit Provider Orthopaedic Surgery | DX: M25.559 Pain in unspecified hip (principal); M16.11 Unilateral primary osteoarthritis, right hip | CPT/HCPCS: 73502 ==